=== PATIENT | female | born 1950 | race Caucasian/White ===

== ENCOUNTER → 2018-08-26 06:56 | Outpatient (CLI) | payer BC, SELFPAY ==
--- NOTE | 2018-08-26 07:01 | CA_ITS ---
PROCEDURE: 2-D M-mode and color Doppler study INDICATIONS FOR THE TEST: Chest pain COPD Heart Murmur Tobacco Smoking Palpitations Fatigue Syncope Edema Hypertension+Diabetes Mellitus+ Rheumatic Fever SOB+[place] Obesity Hyperlipidemia Family History HD Additional History GERD, ABN EKG, PRE-OP SHOULDER SURGERY PATIENT INFORMATION HEIGHT: 63 WEIGHT:257 GENDER: Female B/P:143/61 2-D/M-MODE INTERPRETATION: 2-D MEASUREMENTS OBSERVED VALUES IN CMS Right Ventricular Dimension (RVDd) 1.7 Interventricular Septum (Thickness)(IVsd) 0.8 Left Ventricular Internal Dimensions(LVIDd) 5.6 Left Ventricular Posterior Wall (Thickness)(LVPWd) 1.0 Aortic Root 2.5 Aortic Cusp Separation 2.0 Left Atrial Dimensions (LAD) 3.0 2D 1. Left atrium is mildly enlarged, left ventricle is normal size, visually estimated ejection fraction 55% with no regional wall motion abnormality. 2. The right atrium and ventricle are normal size and contractility. 3. The aortic valve is minimally thickened and fibrosed. 4. The mitral and tricuspid valvular grossly normal. 5. The pulmonic valve is poorly visualized. 6. No significant pericardial noted. DOPPLER INTERROGATION: Doppler interrogation of the aortic, mitral and tricuspid valvular presence of mild mitral and tricuspid regurgitation tricuspid regurgitation jet velocity is inadequate for calculation of the right ventricular systolic pressure, grade 1 diastolic dysfunction seen with tissue Doppler evidence of raised left atrial pressure. CONCLUSION: 1. Mildly enlarged left atrium, normal left ventricular size, visually estimated ejection fraction of 55% with no regional wall motion abnormality, grade 1 diastolic dysfunction seen with tissue Doppler evidence of raised left atrial pressure. 2. Mild mitral and tricuspid regurgitation 3. No significant pericardial effusion noted.
--- NOTE | 2018-08-26 07:03 | NM_ITS ---
CARDIOLITE SPECT MYOCARDIAL PERFUSION LEXISCAN, REST AND STRESS: History: Hypertension, diabetes, family history, shortness of breath, fatigue and abnormal EKG Procedure: Patient received a 0.4 mg of intravenous Lexiscan, resting heart rate was 82 bpm resting blood pressure 132/45, with Lexiscan maximum heart rate achieved was 94 bpm which is less than 85% of the maximum predicted heart rate and a blood pressure was 129/35. With Lexiscan patient complained of shortness of breath. Electrocardiogram: Resting echocardiogram showed sinus rhythm, with Lexiscan there is less than 1.[address] segment depression noted from the baseline EKG. The EKG portion of the Lexiscan is nondiagnostic. Cardiac stress and resting SPECT images: Cardiac stress and the suspect images show decreased tracer activity in the anteroapical wall which improves on the resting images suggestive of reversible ischemia, computer derived ejection fraction is over 65% with no regional wall motion abnormality, right ventricle is normal size and contractility. Conclusion: 1. The EKG portion of the Lexiscan Myoview is nondiagnostic. 2. Scintigraphic evidence of mild reversible ischemia involving the anterior apical wall, computer derived ejection fraction is over 65% with no regional wall motion abnormality, right ventricle is normal size. 3. Abnormal Lexiscan Myoview study.
--- NOTE | 2018-08-26 09:50 | HMH.ITSHM ---
Current Home Medications as stated by this patient Christin Weathers or premium service representative. []potassium omeprazole lasartan gabapentin diclofenac sodium aspirin amlodipine venlafaxine
== END ==
PROVIDERS: Visit Provider Internal Medicine
DX: Z01.810 Encounter for preprocedural cardiovascular examination (principal); R06.00 Dyspnea, unspecified; R94.31 Abnormal electrocardiogram [ECG] [EKG]
CPT/HCPCS: 78452; 93017; 93306; A9502; J2785

== ENCOUNTER 2024-06-14 16:04 | Outpatient (CLI) | payer BC, SELFPAY ==
[2024-06-14 16:44] LABS: Basophils # 0.1 K/mm3 (0-0.2); Basophils % 0.9 % (0.1-2.0); Eosinophils # 0.8 K/mm3 (0.0-0.4); Eosinophils % 10.1 % (0.1-12.0); Hematocrit 38.3 % (37.0-47.0); Hemoglobin 12.6 g/dL (12.2-16.2); Lymphocytes # 2.2 K/mm3 (0.7-4.5); Lymphocytes % 28.2 % (10-50); Mean Corpuscular HGB Conc 32.9 g/dL (31.8-35.4); Mean Corpuscular Hemoglobin 29.1 pg (27.0-31.2); Mean Corpuscular Volume 88.5 fl (81-99); Mean Platelet Volume 10.7 fl (7.4-10.4); Monocytes # 0.6 K/mm3 (0.1-1.0); Monocytes % 7.9 % (1.7-9.3); Neutrophils # 4.1 K/mm3 (1.8-7.8); Neutrophils % 52.8 % (37.0-80.0); Platelet Count 210 K/mm3 (142-424); Red Blood Count 4.33 M/mm3 (4.20-5.40); Red Cell Distribution Width 13.4 % (11.5-17.5); White Blood Count 7.8 K/mm3 (4.8-10.8)
[2024-06-14 17:41] LABS: Albumin Level 4.1 g/dl (3.5-5.0); Chloride 105 mmol/L (98-107)
[2024-06-14 17:42] LABS: Potassium 3.7 mmoL/L (3.5-5.1); Sodium 141 mmol/L (136-145)
[2024-06-14 17:44] LABS: Alanine Aminotransferase 19 U/L (12-78); Alkaline Phosphatase 152 U/L (38-126); Anion Gap 12.7 mEq/L (5-15); Aspartate Amino Transferase 34 U/L (14-36); Bilirubin,Direct 0.3 mg/dl (0.0-0.4); Bilirubin,Indirect 0.3 mg/dL (0.0-0.9); Bilirubin,Total 0.6 mg/dl (0.2-1.3); Bilirubin,Unconjugated 0.3 mg/dL (0.0-1.1); Blood Urea Nitrogen 18 mg/dl (7-17); Carbon Dioxide 27 mmol/L (22.0-30.0); Estimated Glomerular Filt Rate 40 ml/min (>60); GFR (African American) 48 ML/MIN (>60); Total Protein,Serum 7.2 g/dl (6.3-8.2)
[2024-06-14 17:45] LABS: Calcium 9.8 mg/dl (8.4-10.2); Chol/HDL Ratio 1.8 (1-3.5); Cholesterol 110 mg/dl (140-200); Glucose 101 mg/dl (74-100); HDL Cholesterol 62 mg/dl (40-60); Triglycerides 61 mg/dl (30-150); VLDL Cholesterol 12 mg/dL (0-40)
[2024-06-14 17:53] LABS: NT Pro Brain Natriuretic Pep. 1150 pg/mL (0-450)
[2024-06-14 17:59] LABS: Free T4 (Free Thyroxine) 1.62 ng/dl (0.78-2.19)
[2024-06-14 18:14] LABS: Thyroid Stimulating Hormone 1.72 uIU/mL (0.465-4.68)
== END 2024-06-14 23:59 | disposition home or self-care (01) ==
LOC: RT 16:07
PROVIDERS: Visit Provider Internal Medicine
DX: I07.1 Rheumatic tricuspid insufficiency (principal); R00.1 Bradycardia, unspecified; R00.2 Palpitations
CPT/HCPCS: 36415; 80048; 80061; 80076; 82533; 83880; 84439; 84443; 85025; 93270

== ENCOUNTER 2024-07-06 07:25 | Outpatient (CLI) | payer BC, SELFPAY ==
--- NOTE | 2024-07-06 | CA_ITS ---
APPROVED REPORT Exam: Pharmacologic Technologist: Margo Moreno Ht: 5 ft 4 in Wt: 252 lbs BSA: 2.16 m2 HR: 88 bpm BP: 159/65 mmHg Rhythm: Nsr, Inf Q waves, PRWP anteriorly Medical History Medical History: HTN, Diabetes Medications: Eliquis, Atorvastatin, Cyclobenzaprine, Furosemide, Gabapentin, Meloxicam, Losartan HCTZ, Metformin, Metoprolol, Nitroglycerin, Pantoprazole Allergies: Meperidine Cardiac Risk Factors: HTN, Diabetes Stress Test Details Test: Lexiscan HR Resting HR: 88 bpm Max Heart Rate (APMHR): 145 bpm Target HR (85% APMHR): 123 bpm Recovery HR: 98 bpm BP Resting BP: 159.0/65.0 mmHg Max BP: 136.0/56.0 mmHg Recovery BP: 137.0/62.0 mmHg ECG Resting ECG: Nsr, Inf Q waves, PRWP anteriorly Stress ECG Conclusion Pt had no symptoms PVC's - Multifocal <1.5mm ST segment changes Non-diagnostic Lexiscan stress Electronically signed by : Karla Vu MD 07/06/2024 12:39:45
--- NOTE | 2024-07-06 07:52 | CA_ITS ---
APPROVED REPORT EXAM: Comprehensive 2D, Doppler, and color-flow Echocardiogram Chemical Production Engineer: Gabriela Conner RVT Ht: 5 ft 4 in Wt: 252lbs BSA: 2.16 BP: 159/71 mmHg Indications: CP,FATIGUE,SOA,PALPS,A-FIB,BRADYCARDIA 2D Dimensions LA Volume 34.20 mL LA Volume Index 15.83 mL/m2 (M/F) 16-34 M-Mode Dimensions RVDd 2.28 cm (0.9-2.6) LA Diam 4.13 cm (1.9-4.0) LVDd 4.74 cm (3.5-5.7) LVDs 3.26 cm (3.5-5.7) IVSd 0.94 cm (0.6-1.1) PWd 0.49 cm (0.6-1.1) EF (Teich) 59.00% FS 31.20% EDV (Teich) 104.40 mL TAPSE 2.78 (<1.7) ESV (Teich) 42.80 mL LV Diastology E Decel Time 150 (160-240 msec) E/A Ratio 0.7 Aortic Valve KENDALL Index 1.56 cm2/m2 AoV Peak Marcos. 106.0 (50-130 cm/s) AO Peak GR. 4.50 mmHg AO Mean GR. 2.50 (<5 mmHg) AO VTI 21.6 (18-25 cm) KENDALL (VTI) 3.45 (2.5-4.5 cm2) Mitral Valve MV E Max Marcos. 76.0 (40-130 cm/s) MV A Velocity 107.0 (40-130 cm/s) E/A Ratio 0.71 MV PHT 44.0 ms Pulmonary Valve PV Peak Velocity 94.0 (50-150 cm/s) Tricuspid Valve TR P. Velocity 200.00 cm/s RAP Estimate 10.00 mmHg RVSP 26.00 mmHg Left Ventricle The left ventricle is normal size. The left ventricular systolic function is normal. The left ventricular ejection fraction is within the normal range. There is increased LV wall thickness. There is normal LV segmental wall motion. Transmitral Doppler flow pattern suggests impaired LV relaxation. LVEF is 55%. Right Ventricle Right ventricle is mildly dilated. Right ventricle is mildly hypokinetic. Atria Left atrium is mildly dilated. Right atrium is mildly dilated. There is no Doppler evidence of interatrial shunt. Aortic Valve Aortic valve is mildly thickened. There is no aortic valvular stenosis. No aortic regurgitation is present. Mitral Valve The mitral valve is normal in structure. No evidence of mitral valve stenosis. Trace mitral regurgitation. Tricuspid Valve Tricuspid valve is grossly normal in structure and function. Trace tricuspid regurgitation. There is insufficient TR jet to estimate RVSP. Pulmonic Valve The pulmonary valve is normal in structure. Trace pulmonic regurgitation. Great Vessels The aortic root is normal in size. IVC is normal in size and collapses >50% with inspiration. Pericardium There is no pericardial effusion. Other Information Study Quality: Technically Difficult Conclusion Technically difficult study due to poor acoustic windows. Normal LV systolic function. Mild RV dilation with mild reduction in RV function. Mild biatrial dilation. No significant valvular stenosis or regurgitation. Electronically signed by : Karla Vu MD 07/06/2024 12:01:14
--- NOTE | 2024-07-06 08:00 | NM_ITS ---
APPROVED REPORT Exam: Nuclear Stress Test Indication: h/o mi, htn, diabetes, fm hx, sob, palpitations, fatigue Patient Location: Outpatient Stress Tech: Kalli Olmedo ME Tech:EVERARDO Aparicio RT(R)(N) Ht: 5 ft 4 in Wt: 242 lbs HR: 92 bpm BP: 159/65 mmHg BSA: 2.12 m2 TID: 1.02 BMI: 41.5 History: h/o mi, htn, diabetes, fm hx, sob, palpitations, fatigue Procedure: Patient received 0.4 mg of intravenous Lexiscan, resting heart rate 110 bpm, resting blood pressure 159/65 mmHg, with Lexiscan maximum heart rate achieved was 110 bpm which is % of the maximum predicted heart rate and blood pressure was 136/56 mmHg. With Lexiscan, patient denied any complaint of chest pain. Cardiac Stress and Resting SPECT Images: Cardiac Stress and Resting SPECT images were obtained using technetium 99m Myoview 32.4 mCi stress and 10.68 mCi at rest. The patient is unable to lie on her abdomen. Therefore, prone imaging could not be performed. This may affect the diagnostic interpretation of the study findings. There is a small-sized, moderate, predominantly fixed perfusion defect in the apical LV wall. There is a small region of surrounding reversibility. Gated imaging demonstrates normal global and regional LV systolic function. LVEF is calculated at 61%. Conclusion: Small-sized, moderate, predominantly fixed perfusion defect in the apical LV wall. There is a small region of surrounding reversibility. Findings are suggestive of partial reversible ischemia. Gated imaging demonstrates normal global and regional LV systolic function. LVEF is calculated at 61%. Electronically signed by : Karla Vu MD 07/06/2024 12:06:32
[2024-07-06] MEDS: REGADENOSON 0.4MG/5ML SYRINGE 0.4 MG IV (09:52)
[2024-07-06] MEDS: ISOTOPE MYOVIEW (PER STUDY) 1 DOSE IV (09:52)
[2024-07-06] MEDS: SODIUM CHLORIDE 0.9% 10ML SYR (RAD ONLY) 10 ML IV ×2 (09:52)
== END 2024-07-06 23:59 | disposition home or self-care (01) ==
LOC: RAD 07:28
PROVIDERS: Visit Provider Internal Medicine
DX: R94.31 Abnormal electrocardiogram [ECG] [EKG] (principal); R00.1 Bradycardia, unspecified; R00.2 Palpitations; I07.1 Rheumatic tricuspid insufficiency; I34.0 Nonrheumatic mitral (valve) insufficiency; I10 Essential (primary) hypertension
CPT/HCPCS: 78452; 93017; 93018; 93306; A9502; J2785